=== PATIENT | female | born 1990 | race Two or more races ===

== ENCOUNTER 2025-01-18 18:36 | Emergency (ER) | payer OTHER ==
[~2025-01-18] VITALS: Ht 165.1 cm; Wt 119.7 kg
[2025-01-18 19:45] VITALS: BP 110/69; TEMP 98.5; O2SAT 98
== END 2025-01-18 19:45 | disposition home or self-care (01) ==
LOC: ER 18:43
DX: M79.641 Pain in right hand (principal); M79.642 Pain in left hand; W18.39XA Other fall on same level, initial encounter; Y93.89 Activity, other specified; Y92.89 Other specified places as the place of occurrence of the external cause; Y99.8 Other external cause status
CPT/HCPCS: 73130-TC